=== PATIENT | female | born 1960 | race Caucasian/White ===

== ENCOUNTER 2018-03-26 14:05 | Emergency (ER) | payer MEDICAID, OTHER ==
[~2018-03-26] VITALS: Ht 160 cm; Wt 90.7 kg
--- NOTE | 2018-03-26 14:32 | NUR ---
Pt ambulatory to room 4a.
--- NOTE | 2018-03-26 14:40 | NUR ---
CALLED TELESTROKE AND SPOKE WITH [employer] TO PAGE DR HERNANDEZ.
[2018-03-26] MEDS ORDERED: IV NORMAL SALINE 1000 ML BAG IV ONE (14:45)
--- NOTE | 2018-03-26 14:54 | NUR ---
PATIENT BACK FROM CT. WITH DOE TOMAS
[2018-03-26 15:06] LABS: BASOPHILS # (AUTO) 0.1 K/uL (0.0-8.0); BASOPHILS % (AUTO) 1.4 % (0.0-2.0); EOSINOPHILS # (AUTO) 0.1 K/uL (0.0-0.7); EOSINOPHILS % (AUTO) 1.8 % (0.0-7.0); HEMATOCRIT 42.3 % (31.2-41.9); HEMOGLOBIN 14.3 g/dL (10.9-14.3); LYMPHOCYTES # (AUTO) 2.3 K/uL (20.0-40.0); LYMPHOCYTES % (AUTO) 31.6 % (20.5-51.5); MEAN CORPUSCULAR HEMOGLOBIN 30.3 uug (24.7-32.8); MEAN CORPUSCULAR HGB CONC 34 g/dL (32.3-35.6); MEAN CORPUSCULAR VOLUME 89.3 fL (75.5-95.3); MONOCYTES # (AUTO) 0.6 K/uL (2.0-10.0); MONOCYTES % (AUTO) 7.6 % (0.0-11.0); NEUTROPHILS # (AUTO) 4.2 K/uL (1.8-8.9); NEUTROPHILS % (AUTO) 57.6 % (38.5-71.5); PLATELET COUNT (AUTO) 206 K/uL (179-408); RED BLOOD CELL COUNT(AUTO) 4.74 MIL/uL (3.63-4.92); WHITE BLOOD COUNT (AUTO) 7.3 K/uL (3.8-11.8)
--- NOTE | 2018-03-26 15:06 | NUR ---
CODE STROKE WAS CANCELLED PER DR CUETO
[2018-03-26 15:13] LABS: CREATININE 0.9 mg/dL (0.6-1.3); POTASSIUM 4.1 mmol/L (3.5-5.1)
[2018-03-26] MEDS ORDERED: METOCLOPRAMIDE HCL 10 MG/2 ML VIAL IV ONE (15:15)
[2018-03-26] MEDS ORDERED: METOCLOPRAMIDE HCL 10 MG/2 ML VIAL ONE (15:23)
[2018-03-26] MEDS ORDERED: KETOROLAC TROMETHAMINE 30 MG INJ ONE (15:23)
[2018-03-26] MEDS ORDERED: KETOROLAC TROMETHAMINE 30 MG INJ IVP ONE (15:30)
[2018-03-26] MEDS ORDERED: SUMATRIPTAN SUCCINATE 6 MG/0.5 ML VIAL SQ ONE ×2 (15:59→16:00)
--- NOTE | 2018-03-26 16:00 | NUR ---
Patient is resting comfortably in bed with eyes closed
--- NOTE | 2018-03-26 16:21 | NUR ---
Patient discharged to home in stable conditon & brisk steady gait. Written and verbal after care instructions given to patient. Patient verbalizes understanding of instructions. Patient says that he feels so much better.
== END 2018-03-26 16:26 | disposition home or self-care (01) ==
LOC: ER 14:05
DX: G43.909 Migraine, unspecified, not intractable, without status migrainosus (principal)
CPT/HCPCS: 36415; 70030-TC; 70450; 71045; 85025; 85730; 93005; A4663; J1885; J2765; J3030; J7030

== ENCOUNTER 2020-05-10 22:36 | Emergency (ER) | payer MEDICAID, OTHER ==
[~2020-05-10] VITALS: Ht 160 cm; Wt 83.9 kg
--- NOTE | 2020-05-10 22:56 | NUR ---
at bedside for assessment
--- NOTE | 2020-05-10 22:59 | NUR ---
Radiology noted taking X-rays if bilateral knees at this time
[2020-05-11] MEDS ORDERED: IBUPROFEN 600 MG TABLET PO ONE
[2020-05-11] MEDS ORDERED: ACETAMINOPHEN 325 MG TABLET PO ONE
[2020-05-11] MEDS ORDERED: ACETAMINOPHEN ES 500 MG TABLET ONE (00:05)
[2020-05-11] MEDS ORDERED: IBUPROFEN 600 MG TABLET ONE (00:05)
--- NOTE | 2020-05-11 00:14 | NUR ---
Patient discharged to home in stable condition. Took all belongings, Rx given, no signs of acute distress. Written and verbal after care instructions given. Patient verbalizes understanding of instructions. Stressed follow up or return to ER for worsening s/s.
[2020-05-11 00:25] VITALS: BP 126/71
== END 2020-05-11 00:20 | disposition home or self-care (01) ==
LOC: ER 22:38
DX: M25.562 Pain in left knee (principal); M25.561 Pain in right knee; M17.12 Unilateral primary osteoarthritis, left knee; M25.862 Other specified joint disorders, left knee; M25.761 Osteophyte, right knee
CPT/HCPCS: A4663; A9150

== ENCOUNTER 2022-05-12 19:26 | Emergency (ER) | payer MEDICAID ==
[~2022-05-12] VITALS: Ht 160 cm; Wt 93.0 kg
--- NOTE | 2022-05-12 19:47 | NUR ---
Currently seeing and being examined by MD Rodriguez. UA collected. Pt able to ambulate to the bathroom, AOX4, came in for hypertension, on RA, no sob noted.
[2022-05-12 19:53] LABS: *BILIRUBIN,URIN NEGATIVE (NEGATIVE); *CLARITY,URINE CLEAR (CLEAR); *COLOR,URINE LIGHT YELLOW (YELLOW); *KETONES,URINE NEGATIVE (NEGATIVE); *UROBILINOGEN,URINE 0.2 E.U./dl (NORMAL); LEUKOCYTE ESTERASE ,URINE 1+ (NEGATIVE); NITRITE, URINE NEGATIVE (NEGATIVE); PH,URINE 6.5 (5.0-8.0); UGLUCOSE NEGATIVE (NEGATIVE)
[2022-05-12] MEDS ORDERED: IV NORMAL SALINE 1000 ML BAG IV ONE (20:00)
[2022-05-12 20:01] LABS: *BLOOD, URINE TRACE (NEGATIVE)
[2022-05-12 20:12] LABS: HEMATOCRIT 41.7 % (31.2-41.9); MEAN CORPUSCULAR HEMOGLOBIN 30.1 uug (24.7-32.8); MEAN CORPUSCULAR VOLUME 88.4 fL (75.5-95.3); PLATELET COUNT (AUTO) 203 K/uL (179-408)
[2022-05-12 20:23] LABS: CARBON DIOXIDE 30 mmol/L (21-32); CHLORIDE 106 mmol/L (98-107); CREATININE 1.2 mg/dL (0.6-1.3); GLUCOSE 94 mg/dL (74-106); POTASSIUM 3.9 mmol/L (3.5-5.1); UREA NITROGEN, BLOOD 23 mg/dL (7-18)
[2022-05-12 20:39] LABS: ALANINE AMINOTRANSFERASE 27 U/L (14-59); ALKALINE PHOSPHATASE 106 U/L (50-136); ASPARTATE AMINOTRANSFERASE 12 U/L (15-37); BILIRUBIN,DIRECT 0.1 mg/dL (0.0-0.2); BILIRUBIN,TOTAL 0.4 mg/dL (0.2-1.0); TOTAL PROTEIN, SERUM 6.8 g/dL (6.4-8.2)
--- NOTE | 2022-05-12 20:58 | NUR ---
IV SL on R hand 20G
--- NOTE | 2022-05-12 21:56 | NUR ---
D/C IV SL. Patient discharged to home in stable condition. Written and verbal after care instructions given. Patient verbalizes understanding of instructions. Stressed follow up or return to ER for worsening s/s.
[2022-05-12 21:57] VITALS: BP 122/80
[2022-05-12 23:08] LABS: BACTERIA,URINE NONE SEEN /HPF (NONE SEEN); RBC,URINE 0-3 /HPF (0-3); SQUAMOUS EPITHELIAL CELL,UR FEW /HPF (NONE SEEN); WBC,URINE 0-3 /HPF (0-3)
== END 2022-05-12 21:59 | disposition home or self-care (01) ==
LOC: ER 19:54
DX: R03.0 Elevated blood-pressure reading, without diagnosis of hypertension (principal); R42 Dizziness and giddiness; F41.9 Anxiety disorder, unspecified
CPT/HCPCS: 99285; 96360; 71045; 80076; 80048; 81001; 83880; 85025; 84484; 36415; 93005; J7040